=== PATIENT | female | born 1975 | race Caucasian/White ===

== ENCOUNTER → 2017-04-04 | Outpatient (CLI) | payer BC ==
[~2017-04-04] MED LIST: ANTIBIOTIC PO; FLAGYL500 MG PO
== END ==
LOC: RAD 14:29
DX: Z12.31 Encounter for screening mammogram for malignant neoplasm of breast (principal)

== ENCOUNTER → 2017-04-14 | Outpatient (CLI) | payer BC | LOC: ULTRA 01:13 | DX: N60.01 Solitary cyst of right breast (principal) ==

== ENCOUNTER → 2018-04-17 | Outpatient (CLI) | payer BC | LOC: RAD 12:22 | DX: Z12.31 Encounter for screening mammogram for malignant neoplasm of breast (principal) ==

== ENCOUNTER → 2019-04-18 | Outpatient (CLI) | payer BC | LOC: RAD 01:27 | DX: Z12.31 Encounter for screening mammogram for malignant neoplasm of breast (principal) ==

== ENCOUNTER → 2021-04-17 | Outpatient (CLI) | payer BC | LOC: BC 07:24 | PROVIDERS: ATTEND Specialist | DX: Z12.31 Encounter for screening mammogram for malignant neoplasm of breast (principal); N63.20 Unspecified lump in the left breast, unspecified quadrant; N64.89 Other specified disorders of breast ==

== ENCOUNTER → 2021-04-20 | Outpatient (CLI) | payer BC | LOC: ULTRA 15:05 | PROVIDERS: ATTEND Specialist | DX: N60.02 Solitary cyst of left breast (principal) ==